=== PATIENT | male | born 1950 | race Caucasian/White ===

== ENCOUNTER 2019-11-17 18:02 | Inpatient (IN) ==
[2019-11-17 20:47] LABS: ABS Basophils 0.1 10^3/ul (0-0.2); ABS Eosinophils 0.2 10^3/ul (0-0.6); ABS Lymphocytes 2.4 10^3/ul (1.0-4.8); ABS Monocytes 0.6 10^3/ul (0-0.8); Eosinophil % 3.3 %; Hematocrit 26 % (42-52); Lymphocyte % 41.4 %; Mean Corpuscular HGB Conc 34 g/dL (31-36); Mean Corpuscular Hemoglobin 31 pg (27-31); Mean Corpuscular Volume 89 fL (80-94); Mean Platelet Volume 6.7 fL (7.4-10.4); Nucleated Red Blood Cells % 0.1; Platelet Count 290 10^3/uL (150-450); Red Blood Count 2.94 10^6 /uL (4.18-5.48); Red Cell Distribution Width 15 % (10-15); White Blood Count 5.7 10^3/uL (3.5-10.8)
[2019-11-17 20:53] LABS: INR 1.15 (0.82-1.09)
[2019-11-17 21:57] LABS: Albumin 4.2 g/dL (3.2-5.2); Calcium 9.1 mg/dL (8.6-10.3); Potassium 3.9 mmol/L (3.5-5.0); Total Bilirubin 0.4 mg/dL (0.2-1.0)
[2019-11-17 22:03] LABS: BUN/Creatinine Ratio 17.6 (8-20); EGFR African American 87.6 (>60); EGFR Non-African American 72.4 (>60); Globulin 2.1 g/dL (2-4); Total Protein 6.3 g/dL (6.4-8.9)
[2019-11-18] MEDS ORDERED: Ondansetron 4 mg VIAL 2 MG/ML 2 ml VIAL IV PRN
[2019-11-18] MEDS ORDERED: Dextrose 50% Syringe 50 ml 25 GM/50 ML SYRINGE IV PUSH PRN (00:08)
[2019-11-18] MEDS: Pantoprazole VIAL 40 MG VIAL IV SCH ×3 (00:41→23:21)
[2019-11-18] MEDS ORDERED: Albuterol HFA INHALER 8 gm MDI INH PRN (01:02)
[2019-11-18 01:22] LABS: LDH 181 U/L (140-271); Total Iron Binding Capacity 416 mcg/dL (250-450); Transferrin 297 mg/dL (203-362)
[2019-11-18 02:00] LABS: Ferritin 7.5 ng/mL (24-336)
[2019-11-18 02:04] LABS: Folate > 20.00 ng/mL (>3.99)
[2019-11-18 02:52] LABS: % Iron Saturation 5 % (15-55); Iron < 20 ug/dL (50-212)
[2019-11-18 03:27] LABS: Hematocrit 23 % (42-52); Hemoglobin 7.8 g/dL (14.0-18.0)
[2019-11-18 05:42] LABS: ABS Basophils 0.1 10^3/ul (0-0.2); ABS Eosinophils 0.2 10^3/ul (0-0.6); ABS Lymphocytes 1.7 10^3/ul (1.0-4.8); ABS Monocytes 0.4 10^3/ul (0-0.8); Corrected Retic Count 1.2 % (0.5-1.5); Eosinophil % 4.1 %; Hematocrit 24 % (42-52); Hematocrit for Retic CNT 24 % (42-52); Hemoglobin 8.2 g/dL (14.0-18.0); Immature Retic Fraction 0.52; Mean Corpuscular HGB Conc 34 g/dL (31-36); Mean Corpuscular Hemoglobin 30 pg (27-31); Mean Corpuscular Volume 90 fL (80-94); Mean Platelet Volume 6.6 fL (7.4-10.4); Nucleated Red Blood Cells % 0.1; Platelet Count 259 10^3/uL (150-450); Red Cell Distribution Width 15 % (10-15)
[2019-11-18 05:50] LABS: INR 1.14 (0.82-1.09)
[2019-11-18 05:59] LABS: BUN/Creatinine Ratio 19.3 (8-20); Calcium 8.5 mg/dL (8.6-10.3); EGFR African American 111.2 (>60); EGFR Non-African American 91.9 (>60); Potassium 3.9 mmol/L (3.5-5.0)
[2019-11-18] MEDS ORDERED: NS 0.9% 1000 ml BAG 1,000 ML IV SCH ×2 (06:15)
[2019-11-18 10:16] LABS: Magnesium 1.7 mg/dL (1.9-2.7)
[2019-11-18] MEDS ORDERED: Iron Sucrose 200 MG in NS 0.9% 100 ml BAG 100 ML IVPB ONE (10:30)
[2019-11-18] MEDS ORDERED: Magnesium Sulfate 2 gm BAG 2 GM/50 ML BAG IVPB ONE (10:42)
[2019-11-18] MEDS: Insulin LISPRO 100 units/ml(*) SUBCUT SCH ×3 (11:53→17:15)
[2019-11-18] MEDS: Insulin GLARGINE 100 un/ml (*) 10 ml VIAL SUBCUT SCH (11:55)
[2019-11-18 12:38] LABS: Hematocrit 25 % (42-52); Hemoglobin 8.2 g/dL (14.0-18.0)
[2019-11-18] MEDS ORDERED: fentaNYL 100 mcg/2 ml 50 MCG/ML VIAL ONE (13:53)
[2019-11-18] MEDS ORDERED: Midazolam 10 mg/10 ml VIAL 1 mg/ml 10 ml VIAL (10 mg) ONE (13:54)
[2019-11-19 06:44] LABS: ABS Basophils 0.1 10^3/ul (0-0.2); ABS Eosinophils 0.1 10^3/ul (0-0.6); ABS Monocytes 0.4 10^3/ul (0-0.8); Eosinophil % 3.8 %; Hematocrit 24 % (42-52); Hemoglobin 8.4 g/dL (14.0-18.0); Lymphocyte % 28.3 %; Mean Corpuscular HGB Conc 34 g/dL (31-36); Mean Corpuscular Hemoglobin 31 pg (27-31); Mean Corpuscular Volume 89 fL (80-94); Mean Platelet Volume 6.8 fL (7.4-10.4); Platelet Count 280 10^3/uL (150-450); Red Blood Count 2.73 10^6 /uL (4.18-5.48); Red Cell Distribution Width 15 % (10-15); White Blood Count 3.6 10^3/uL (3.5-10.8)
[2019-11-19 06:56] LABS: BUN/Creatinine Ratio 12.7 (8-20); Calcium 8.7 mg/dL (8.6-10.3); EGFR African American 117.7 (>60); EGFR Non-African American 97.2 (>60); Potassium 3.7 mmol/L (3.5-5.0)
[2019-11-19] MEDS: Insulin LISPRO 100 units/ml(*) SUBCUT SCH ×2 (08:10→12:24)
[2019-11-19] MEDS ORDERED: Iron Sucrose 200 MG in NS 0.9% 100 ml BAG 100 ML IVPB ONE (08:30)
[2019-11-19] MEDS: Insulin GLARGINE 100 un/ml (*) 10 ml VIAL SUBCUT SCH (11:09)
[2019-11-19 12:05] VITALS: BP 105/60
[2019-11-19] MEDS: Pantoprazole VIAL 40 MG VIAL IV SCH (12:26)
[2019-11-21 16:30] LABS: Methylmalonic Acid 0.23 nmol/mL (<=0.40)
== END 2019-11-19 14:57 | disposition home or self-care (01) | DRG 309 ==
LOC: MEDTELE 18:02 → ED 18:02 → MEDTELE 11-18 01:11
PROVIDERS: ADMIT Nurse Practitioner Family; ATTEND Internal Medicine